=== PATIENT | male | born 1955 | race African-American/Black ===

== ENCOUNTER → 2019-01-23 15:03 | Outpatient (CLI) | payer OTHER, SELFPAY ==
[2019-01-23 15:19] LABS: Bacteria Urine None Seen; RBC Urine None Seen (0-5/HPF); WBC Urine None Seen (0-5/HPF)
[2019-01-23 15:57] LABS: Add Manual Diff / Slide Review NO; Basophils Absolute Auto 100 /uL (0-100); Basophils Percent Auto 1.2 % (0-2); Eosinophils Absolute Auto 300 /uL (0-450); Eosinophils Percent Auto 4.8 % (2-4); Hematocrit 38.2 % (41-53); Hemoglobin 12.3 g/dL (13.5-17.5); Lymphocytes Absolute Auto 1400 /uL (1100-4500); Lymphocytes Percent Auto 26.9 % (25-40); Mean Corpuscular HGB Conc 32.2 % (30-36); Mean Corpuscular Hemoglobin 29.6 PG (26-34); Mean Corpuscular Volume 91.8 fL (80-100); Monocytes Absolute Auto 400 /uL (0-900); Monocytes Percent Auto 6.9 % (3-14); Neutrophils Absolute Auto 3200 /uL (1500-7000); Neutrophils Percent Auto 60.2 % (50-75); Platelet Count 321 X10^3/uL (150-400); Red Blood Cell Count 4.17 X10^6/uL (4.5-5.9); Red Cell Distribution Width 12.8 % (11.6-14.8); White Blood Cell Count 5.3 X10^3/uL (4.5-11.0)
[2019-01-23 16:06] LABS: Appearance Urine UA CLEAR; Bilirubin Urine UA NEGATIVE (NEGATIVE); Color Urine UA YELLOW; Glucose Urine UA NEGATIVE (Negative); Ketones Urine UA NEGATIVE (NEGATIVE); Leukocyte Esterase Urine UA NEGATIVE (NEGATIVE); Nitrite Urine UA NEGATIVE (Negative); Occult Blood Urine UA NEGATIVE (Negative); Protein Urine UA TRACE (Negative); Specific Gravity Urine UA >=1.030 (1.000-1.035); Urobilinogen Urine UA 0.2 E.U./dL (0.2)
[2019-01-23 16:31] LABS: BUN Creatinine Ratio 15.6 (6-22); Blood Urea Nitrogen 14 mg/dL (9-20); Calcium 9.8 mg/dL (8.4-10.2); Carbon Dioxide 28 mmol/L (22-32); Chloride 103 mmol/L (98-107); Estimated Glomerular Filt Rate > 60.0 mL/min (>60); Glucose 80 mg/dL (80-110); HEMOLYSIS < 15 (0-50); Mucus Urine 2+ (Negative); Potassium 4.6 mmol/L (3.4-5.1); Sodium 139 mmol/L (137-145)
[2019-01-23 16:59] LABS: Culture Indicated Urine Cult Not Indicated
== END ==
PROVIDERS: Visit Provider Orthopaedic Surgery
DX: Z01.818 Encounter for other preprocedural examination (principal); Z01.812 Encounter for preprocedural laboratory examination; N39.9 Disorder of urinary system, unspecified; Z13.1 Encounter for screening for diabetes mellitus
CPT/HCPCS: 36415; 80048; 81001; 83036; 85025; 93005

== ENCOUNTER 2019-02-07 06:19 | Inpatient (IN) | payer OTHER, SELFPAY ==
[2019-01-24 07:22] VITALS: BMI 24.8
[2019-02-07] VITALS (15 sets, daily range): BP systolic 128–167; BP diastolic 63–99; PULSE 77–94; RESP 8–23; TEMP 36.3–37.4; O2SAT 96–99; BMI 23.5
--- NOTE | 2019-02-07 | DI.RAD.S_ITS ---
PROCEDURE: XR HIP W PEL IF DONE RT 2V INDICATIONS: RIGHT ANTERIOR HIP TECHNIQUE: 2 views of the hip were acquired. COMPARISON: None. FINDINGS: Bones: No fractures or dislocations after right total hip arthroplasty performed earlier today. Left severe hip joint osteoarthritis is noted, without acute trauma superimposed.. No suspicious bony lesions. The visualized pelvic ring appears intact. Soft tissues: No suspicious soft tissue calcifications or masses. IMPRESSION: Severe left hip joint osteoarthritis, right total hip arthroplasty performed earlier today with normal alignment established. Dictated by: Cristino Umanzor M.D. on 02/07/2019 at 14:09 Approved by: Cristino Umanzor M.D. on 02/07/2019 at 14:10
--- NOTE | 2019-02-07 | DI.RAD.S_ITS ---
PROCEDURE: XR PELVIS 1-2V INDICATIONS: RIGHT ANTERIOR HIP INNER OP PRACTICE TECHNIQUE: Intra-operative view of the pelvis and hip acquired. COMPARISON: None. FINDINGS: Bones: Intraoperative devices prior to placement of arthroplasty prostheses are in expected positions. No fractures or suspicious bony lesions. Soft tissues: Overlying surgical retractors are present, along with other intraoperative changes. IMPRESSION: Normal alignment in preparation for placement of final components of right total hip arthroplasty. Dictated by: Cristino Umanzor M.D. on 02/07/2019 at 15:23 Approved by: Cristino Umanzor M.D. on 02/07/2019 at 15:23
[2019-02-07] MEDS: LACTATED RINGERS 1,000 ML 42 ML IV ×2 (06:55→09:51)
[2019-02-07] MEDS: VANCOMYCIN 1,000 MG/200 ML FROZ.PIGGY 200 MG IV (07:00)
[2019-02-07] MEDS: ACETAMINOPHEN 325 MG TABLET 975 MG PO ×3 (07:15→21:50)
[2019-02-07] MEDS: PREGABALIN 75 MG CAPSULE PO (07:16)
[2019-02-07] MEDS: CELECOXIB 200 MG CAPSULE PO (07:16)
--- NOTE | 2019-02-07 07:36 | PM.PREOP ---
Pre-operative Note Interval Note History & Physical reviewed/Exam performed by Physician: Yes Changes to H&P: No
--- NOTE | 2019-02-07 07:36 | PM.OP.1 ---
Operative Date/Time/Diagnoses Date of procedure: 02/07/19 Time of procedure: 07:58 Pre-op diagnosis: right hip OA Post-op diagnosis: same Procedure & Clinicians Procedure: right total hip arthroplasty anterior Same procedure as scheduled: Yes Indications: The patient has had progressively worsening right hip pain with radiographic changes consistent with arthritis. Non-operative management has failed and the patient has requested total hip replacement. The risks, benefits and alternatives to surgery were discussed with the patient prior to proceeding. Risks discussed included, but were not limited to, failure to relieve pain, leg length discrepancy, dislocation, stiffness, infection, nerve damage, deep venous thrombosis, pulmonary embolism, stroke, coma, heart attack, permanent paralysis and , as well as the potential need for eventual revision of the prosthetic. Surgeon: Jerilyn Sanchez Rn Operating Room: [facility] Anesthesia Type: General and Spinal Operative Notes Findings: Severe right hip arthritis, good stability Closure Type: primary Specimen(s): none sent Prosthetic devices, grafts, tissues, transplants, or devices: sanchez and nephew R3 54, anthology 7 high offset, +0 by 36 Estimated Blood Loss (mL): 250 Blood products transfused: none Procedure in detail: The patient was brought to the operating room. Patient was carefully positioned in the supine position. Time-out was performed and antibiotics were given. Anesthesia was induced. He was positioned in the on the Dana table in order to allow hyperextension of the hip. The right lower extremities was prepped and draped in a standard sterile fashion. An anterior right hip incision was made 1 fingerbreadth lateral to the anterior superior iliac spine and extended distally towards the greater trochanter. Dissection was carried out through skin and subcutaneous tissues. The skin and subcutaneous tissues were carefully injected with Lidocaine with epi. Superficial hemostasis was achieved. The fascia over the tensor fascia sybil was defined and incised with a knife. Two Allis clamps were used to grasp the fascia. Tensor fascia sybil was retracted laterally. A gelpi retractor was placed. Dissection was carried out down along the neck. The circumflex vessels were carefully identified and cauterized with the Aqua Mantis. There was good visualization of the femoral neck. A Cobra was placed superior to the neck and the gluteus fibers were carefully stripped from that superior aspect of the capsule. A 2nd retractor was placed along the inferior aspect of the neck. The rectus insertion along the capsule was partially released. A 3rd retractor that was then gently placed over the rim of the acetabulum under the rectus. Capsule was carefully incised and released from the intertrochanteric line circumferentially superior to the mid sagittal line and inferiorly to the mid sagittal line until the lesser trochanter was palpable. A tag stitch was placed both in the superior and inferior limb of the capsular insertion. Along the acetabulum capsule was also released up to the mid sagittal 12:00 position. A portion of the labrum was resected. A saw was used to perform an osteotomy at the level of the intertrochanteric line and the junction of the superior femoral neck leaving approximately 1 finger breath of residual inferior neck above the lesser trochanter. A 2nd cut was made along the femoral neck at the base of the head and a napkin ring of neck was removed. Corkscrew was placed in the femoral head and the head was removed without difficulty. Retractors were then repositioned around the acetabulum. Residual labrum was resected and additional osteophytes were removed. A reamer that was 4 mm below the templated size was placed by hand in the acetabulum and it was reamed to centralize the acetabulum. It was then reamed up to 2 under the templated size and fluoroscopy was brought in to confirm the position of the reaming and depth of reaming. I reamed 1 under the anticipated size and touched the rim with line to line reaming. A trial cup was placed and noted that it was appropriately sized and fluoroscopy confirmed position and depth. The component was open and inserted without difficulty fluoroscopic imaging was used to confirm that the cup had been adequately seated and was well positioned. Neutral poly trial liner was placed. The cup was tested and noted to be stable. Attention was then directed to the femur. The femur was gently hyperextended additional capsular release was performed as needed in order to allow adequate visualization of the proximal femur with elevation of the femur. Patient was placed in a hyperextended slightly abducted position with maximum external rotation. Box osteotome was used to check for any residual neck as well as sclerotic bone along the trochanter. [place] pepper was placed in the femur. Additional broaching was performed. Canal finder was used to determine the alignment of the canal and position. Size 1 broach was placed. The canal was then appropriately broached up to the templated size as long as there was adequate stability of the broach and serial advancement of the broach without excessive impingement. Specific attention was directed at avoiding varus attempting to direct the distal aspect of the broach more anteriorly and avoiding excessive anteversion. Trial reduction showed acceptable range of motion, good stability, no posterior impingement, spiritism of leg length and appropriate lateral shuck. I also hyperflexed the hip and checked that there was no impingement anteriorly and there was good stability with flexion, abduction and internal rotation. Final neutral poly was placed without difficulty. Marcaine and Exparel were injected.. The stem was placed without difficulty. Repeat trial reduction and x-ray showed acceptable overall position, length, and no evidence of the femoral fracture. Final head was placed. Wound was meticulously irrigated with normal saline. The hip was reduced and additional Exparel and Marcaine were injected. The capsule was closed with interrupted nonabsorbable sutures. The fascia of the tensor was closed with interrupted and running Vicryl. No drain was placed. Any tensor fascia sybil muscle that appeared to be contused or injured which was a minimal amount was carefully resected. Capsule around the tensor was injected with Exparel and Marcaine. The skin was closed with barbed stitches for the subcutaneous tissue and skin. We also used surgical glue. The wound was dressed sterilely. Brief Betadine soak was also used and was meticulously irrigated with normal saline. Patient was transferred to recovery room in satisfactory condition. Complications: none Condition: stable Disposition: Acute Care Plan for aftercare: The patient will be maintained on a standard total hip replacement protocol with weight bearing as tolerated and anterior hip precautions. The patient will receive Aspirin and sequential compression devices for DVT prophylaxis. The patient will be discharged home when safe for the home environment.
[2019-02-07] MEDS: CEFAZOLIN 2 GM/100 ML FROZ.PIGGY IV ×2 (08:04→16:27)
[2019-02-07] MEDS: LIDOCAINE 1% W/EPI INJ 20 ML INJ (08:40)
[2019-02-07] MEDS: TRANEXAMIC ACID 1,000 MG VIAL 1000 MG INJ ×2 (09:07→11:04)
[2019-02-07] MEDS: BUPIVACAINE LIPOSOME 266 MG/20 ML VIAL INJ (09:07)
[2019-02-07] MEDS: BUPIVACAINE 0.25% W/ EPI (PF) 10 ML VIAL 60 ML INJ (09:08)
[2019-02-07] MEDS: POVIDONE-IODINE 15 ML, SODIUM CHLORIDE 0.9% 250 ML TOP (09:52)
--- NOTE | 2019-02-07 12:17 | SUR.PHASEI ---
REPORT CALLED TO [facility]NA ON ACUTE CARE FLOOR. PT IN STABLE CONDITION AND BEING TRANSPORTED TO ACUTE CARE FLOOR AT THIS TIME.
--- NOTE | 2019-02-07 12:26 | SUR.PHASEI ---
PT TRANSFERED TO ACUTE CARE FLOOR IN STABLE CONDITION. PT ALERT AND TALKING TO STAFF DURING TRANSPORT. PT IN ROOM UPON ARRIVAL. BEDSIDE REPORT GIVEN TO JEAN GILBERT UPON ARRIVAL. TRANSFERRED CARE OF PT TO [facility] PE[facility] AT THAT TIME.
[2019-02-07] MEDS: LACTATED RINGERS 1,000 ML 125 ML IV ×2 (13:00→21:48)
--- NOTE | 2019-02-07 13:49 | CM.DANOTE ---
DCP: Case received,EMR reviewed and met with patient. Introduced self and role. DCP template completed with information currently available. Patient is a 63 year old male who admitted early this morning to the care of the surgical team. PCP: Dr. Man at [facility]. Payer: confirmed: [employer]. Patient came to hospital for surgical procedure. Had Right total hip replacement. Patient has had history of bilateral hip pain. Met with patient today. , Jenni at bedside. Patient alert and oriented, pleasant and conversive. Lives in [place] with his spouse. He stated that prior to surgery, he has been independent, no cane or walker. He has also been driving. He stated that he plans to go home and go to outpatient physical therapy. P: DCP to follow closely. Had surgery this morning, and anticipate that he will be soon working with physical therapy. Will consult with the therapy team as well, for discharge planning. Mandy Benavides RN/[employer]
--- NOTE | 2019-02-07 14:13 | PC.NURSE ---
Received patient post op from PACU approx 1325, vss. Denies pain. Aquacel dressing in place, CDI, no signs of bleeding. Moving all extremities. Good pulses, neurovascular check wnl. Urinal placed within reach, call light within reach. Bed alarm on for safety.
[2019-02-07] MEDS: OXYCODONE IR 5 MG TABLET PO ×2 (15:02→21:49)
--- NOTE | 2019-02-07 15:30 | PT.IIE ---
Current Diagnoses Bilateral primary osteoarthritis of hip (02/07/19) Pain in right hip (02/07/19) Surgery Performed Operation Date: 02/07/19 07:45 Actual Procedures p Total Hip Arthroplasty/Anterior Approach(Right) - Jerilyn Delgadillo MD Surgical History (Last Updated 01/24/19 @ 08:19 by Liza Craft, RN) History of ankle surgery (Acute ~1981) History of colonoscopy (Acute) Medical History (Last Updated 01/24/19 @ 08:19 by Liza Craft RN) Anxiety and depression (Acute) Arthritis (Acute) Heartburn (Acute) Low back pain (Acute) Sciatica (Acute) Physical Therapy Inpatient Evaluation/Re-Eval M1 PT/OT-IP Prior Functional Status Start: 02/07/19 16:45 Freq: NEEDED Status: Active Protocol: Document 02/07/19 15:30 AB (Rec: 02/07/19 17:10 AB [id number]) Medical Review Prior Functional Status Medical History Reviewed Yes Communication able to make needs known Mobility and Gait pt stated that he is independent with all mobilities and ambulation without AD Social History Household Members spouse Living Arrangements House Number of Floors (Floors) One Floor Number of Stairs To Enter/Railing? 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 pt has a standard walker. M2 PT-IP Current Condition Start: 02/07/19 16:45 Freq: NEEDED Status: Active Protocol: Document 02/07/19 15:30 AB (Rec: 02/07/19 17:10 AB [id number]) Physical Therapy Current Condition Current Condition Evaluation Date 02/07/19 Treatment Diagnosis s/p R LESA anterior approach; difficulty in walking Onset Date 02/07/19 Precautions Anterior Hip Precautions No Hip Extension No Hip External Rotation Weight Bearing Status Weight Bearing Status Weight Bear as Tolerated M3 PT-IP Subjective Start: 02/07/19 16:45 Freq: NEEDED Status: Active Protocol: Document 02/07/19 15:30 AB (Rec: 02/07/19 17:10 AB [id number]) Subjective Physical Therapy Visit Type Type Initial Evaluation Visit Start Time 15:30 Visit Stop Time 16:20 Total Visit Minutes 50 Number of AEROBICS TEACHER Visits 0 Physical Therapy Visit Comments Patient Comments pt agreeable to do PT Therapy Pain Assessment Pain When Pain Assessed At Rest Pain Present Pain Present Pain Reported Location Right Groin Intensity 6 Scale Used Numeric (1 - 10) Pain Management Techniques Apply Cold Re-positioning Timing of Activity with Medications M4 PT-IP Mobility and Gait Start: 02/07/19 16:45 Freq: NEEDED Status: Active Protocol: Document 02/07/19 15:30 AB (Rec: 02/07/19 17:10 AB [id number]) PT-Bed Mobility Assessment Supine to Sit Supine to Sit Standby Assistance PT-Transfer Assessment Sit to and From Stand Sit to and from Stand Contact Guard Assistance Equipment Transfer Assistive Device Gait Belt Front Wheeled Walker Orthotic/Prosthetic Devices or Brace: No Transfers Transfer Destination Chair Transfer Technique Stand Step Pivot Transfer Ability Level of Assist Contact Guard Assistance 1 Person Assistance Use of Upper Extremities Comments Mobility Comments pt completed sit to stand from EOB CGA and was able to maintain standing using FWW for support. pt was able to maintain standing while using urinal. NAC present to assist with clean up and brief change. pt stated that he still cannot feel if he has to go or not. Pt completed sit <> stand x 3 reps and was able to maintain standing using FWW for support CGA while completed ADLs. Gait Assessment Gait Gait Assistance Required: Contact Guard Assist Distance (Feet) 30 Able to Maintain Weight Bearing Status Yes During Gait Assistive Devices Assistive Device Gait Belt Front Wheeled Walker Orthotic/Prosthetic Devices or Brace: No Factors Limiting Gait Function Factors Limiting Gait Function Decreased Activity Tolerance Decreased Strength Limited Range of Motion Pain Poor Balance Poor Safety Awareness Comments Gait Comments pt requires cues to maintain R hip anterior precautions PT-Balance Assessment Sitting Balance and Reactions Static Sitting Balance Ability Good Dynamic Sitting Balance Ability Good Standing Balance and Reactions Static Standing Balance Ability Fair Dynamic Standing Balance Ability Fair Device Used FWW M5 PT-IP Objective Assessments Start: 02/07/19 16:45 Freq: NEEDED Status: Active Protocol: Document 02/07/19 15:30 AB (Rec: 02/07/19 17:10 AB [id number]) Orientation Orientation/Cognition Level of Alertness Alert Orientation Name Age Place Situation Language Function Ability No Deficits Noted Safety Awareness Decreased Safety Awareness Memory Description Short Term Impaired Gross Range of Motion Lower Extremity ROM Assessment Within Functional Limits Strength Lower Extremity Strength Assessment Right Impaired Hip 3+/5 Knee 4-/5 Ankle 4+/5 Coordination Assessment Gross Coordination Gross Coordination WNL Sensation Assessment Sensation Gross Sensation Right LE Impaired Sensation Description Numbness Muscle Tone Muscle Tone WNL Yes M6 PT-IP Treatment Start: 02/07/19 16:45 Freq: NEEDED Status: Active Protocol: Document 02/07/19 15:30 AB (Rec: 02/07/19 17:10 AB [id number]) Physical Therapy Treatment Education Education Provided Precautions Weight Bearing Status Post-Op Packet Safety M7 PT-IP Assessment and Plan Start: 02/07/19 16:45 Freq: NEEDED Status: Active Protocol: Document 02/07/19 15:30 AB (Rec: 02/07/19 17:10 AB [id number]) PT Summary Assessment and Plan Potential Rehabilitation Potential Good Status of Condition at Evaluation Stable Summary Impairments Pain ROM Strength Balance Coordination Sensation Tone Cognition Bed Mobility Transfers Gait Activity Tolerance Assessment Summary pt requiring CGA with mobility and will likely improve during hospital stay. pt plans to go home with spouse to assist him Goals Bed Mobility Goal Independent Transfer Goal Independent Front Wheeled Walker Gait Goal Independent Front Wheel Walker Gait Distance 250 Other Goals ambulation using standard walker 300 ft mod I Days to Meet Goals 3 Frequency of Treatment Frequency Of Treatment Twice a Day Treatment Plan Physical Therapy Treatment Plan Bed Mobility Training Transfer Training Gait Training Therapeutic Exercise Balance Retraining Post Op Education Discharge Planning Hot or Cold Pack Neuromuscular Re-ed Coordination Retraining Manual Therapy Other Recommendations and Next Treatment ambulation using standard Focus walker Recommendations To Nursing Amount of Assist Needed 1 Person Assist Discharge Recommendations PT Discharge Recommendations Home with Assistance Outpatient PT Equipment Needed for Home Before FWW if not safe with standard Discharge walker
[2019-02-07] MEDS: NICOTINE 21 MG PATCH TOP (16:28)
[2019-02-07] MEDS: DOCUSATE 100 MG CAPSULE PO (21:51)
[2019-02-07] MEDS: ASPIRIN EC 81 MG TABLET PO (21:51)
[2019-02-07] MEDS: SERTRALINE 50 MG TABLET 100 MG PO (21:51)
[2019-02-08] MEDS: CEFAZOLIN 2 GM/100 ML FROZ.PIGGY IV (00:13)
[2019-02-08] MEDS: OXYCODONE IR 10 MG TABLET PO ×2 (04:13→09:05)
[2019-02-08] MEDS: LACTATED RINGERS 1,000 ML 125 ML IV (04:13)
[2019-02-08 04:23] VITALS: BP 160/76; PULSE 77; RESP 18; TEMP 37.4; O2SAT 98
[2019-02-08 06:07] LABS: Hematocrit 30.7 % (41-53); Hemoglobin 10.1 g/dL (13.5-17.5)
--- NOTE | 2019-02-08 07:18 | P.DS_ITS ---
History of Present Illness Date Patient Seen: 02/08/19 Chief complaint: [id number] Right Total Hip Arthroplasty Narrative: Patient is seen bedside status post right anterior total hip arthroplasty by Dr. Delgadillo on 02/07/2019. Patient is doing well, he has been up several times and is using his walker. He would like to go home today. Pain has been well controlled with 10 mg of oxycodone. He normally receives his op iate scripts from his pain management doctor whom he has a pain contract with, however, he has been cleared to get his initial postoperative scripts from us. Discharge Providers Date of admission: 02/07/19 06:19 Discharge Date: 02/08/19 Consults: 01/24/19 08:32 Consult to Pastoral Services Routine Comment: RT LESA 02/07/19 Consult to Respiratory Therapy Evaluate & Treat Comment: RT LESA 02/07/19. Pt would like a nicotine patch Physician Instructions: Evaluate and treat 02/07/19 06:00 Consult to Anesthesiology Routine Comment: Consulting Provider: Anesthesiologist Reason for consultation: Regional block for post operative pain control 02/07/19 12:31 Consult to Discharge Planning Routine Comment: Consult to Physical Therapy Evaluate & Treat Comment: oob today Physician Instructions: post op LESA protocol Consult to Respiratory Therapy Evaluate & Treat Comment: Physician Instructions: Evaluate and treat Discharge provider: Cayla Abdi PA-C Summary Discharge Diagnosis: Right hip osteoarthritis Hospital Course: Patient was admitted to the hospital s/p right anterior LESA POD #1. Patient tolerated the procedure well with no major complications. They were transferred to the acute care floor where they were placed on the standard joint replacement pathway and protocol. They were seen by physical therapy who recommended that they be discharged home. They were stable and ready for discharge on 02/08/2019. Status at Discharge Cognitive/behavioral status at discharge: oriented Functional status at discharge: uses cane/walker Overall status at discharge: patient is progressing back to baseline Time Spent with Patient Less than 30 minutes Exam Vital Signs (past 8 hours): - 02/07/19 23:45 02/08/19 04:23 Temperature 99.2 F 99.4 F Pulse Rate 81 77 Respiratory Rate 16 18 Blood Pressure 147/70 H 160/76 H Pulse Oximetry 99 98 Oxygen Delivery Method Room Air Oxygen Flow Rate 0 Narrative Exam Narrative: Well-developed, well-nourished, no acute distress. Alert and oriented to person, place, and time. Dressing on operative hip is clean, dry, and intact with no signs of drainage. Minimal erythema and generalized swelling around the surgical site. Neurovascularly intact in the operative extremity with a soft and compressible calf. Range of motion of the operative ankle intact. Objective Labs Result Diagrams: 02/08/19 05:50 Labs: Laboratory Results - last 24 hr 02/08/19 05:50 Hgb 10.1 L Hct 30.7 L Discharge Plan Discharge Plan Patient Disposition: Home Discharge Med Rec/Prescriptions Prescriptions: New aspirin 81 mg Tablet,Delayed Release (Dr/Ec) 81 mg PO BID Qty: 0 RF: 0 docusate sodium 100 mg Capsule 100 mg PO BID Qty: 0 RF: 0 oxycodone 10 mg tablet 10 mg PO Q4-6H PRN (Reason: pain) Qty: 40 RF: 0 Continued meloxicam 15 mg Tablet 15 mg PO DAILY RF: 0 sertraline 100 mg Tablet 200 mg PO BID RF: 0 ranitidine HCl 75 mg Tablet 75 mg PO DAILY PRN (Reason: GI upset) RF: 0 Discontinued oxycodone-acetaminophen [Percocet] 5-325 mg Tablet 1 tab PO BID RF: 0 ibuprofen 400 mg Tablet 400 mg PO QAM RF: 0 Follow up/Referrals: Jerilyn Delgadillo MD [Physician] - (Follow up in the office in 5-7 days as previously scheduled. Please check [facility] book for appointment information.) Provider Discharge Instructions Diet: Diet as Tolerated Activity: Weightbearing as tolerated, follow anterior hip precuations Cold/Heat Therapy: Apply ice 20 minutes at a time to surgical site at least hourly while awake. Other treatments: Please refer to [facility] book for other post-operative instructions and answers to questions/concerns. Do not take ibuprofen and meloxicam at the same time. Skin/Wound/Dressing Care Report to your healthcare provider any signs of infection, such as:: chills, fever, night sweats, increased pain, unusual drainage and unusual redness Dressing: Keep dressing clean, dry, and intact. May shower with it in place but no soaking. Visit Report/Discharge Packet Instructions: DI for Hip Replacement Stand Alone Forms: Surgery Discharge Discharge Data Attending Provider: Jerilyn Delgadillo Admit Date/Time: 02/07/19 06:19 Quality VTE Deep Vein Thrombosis/Pulmonary Embolism Present on Admission: No
[2019-02-08 08:00] VITALS: BP 142/71; PULSE 78; RESP 16; O2SAT 97
[2019-02-08] MEDS: DOCUSATE 100 MG CAPSULE PO (09:06)
[2019-02-08] MEDS: MELOXICAM 7.5 MG TABLET 15 MG PO (09:06)
[2019-02-08] MEDS: ASPIRIN EC 81 MG TABLET PO (09:06)
[2019-02-08] MEDS: ACETAMINOPHEN 325 MG TABLET 975 MG PO (09:06)
[2019-02-08] MEDS: SERTRALINE 50 MG TABLET 100 MG PO (09:07)
--- NOTE | 2019-02-08 09:57 | PT.IPTN ---
Current Diagnoses Bilateral primary osteoarthritis of hip (02/07/19) Pain in right hip (02/07/19) Surgery Performed Operation Date: 02/07/19 07:45 Actual Procedures p Total Hip Arthroplasty/Anterior Approach(Right) - Jerilyn Delgadillo MD Physical Therapy Treatment Note M2 PT-IP Current Condition Start: 02/07/19 16:45 Freq: NEEDED Status: Active Protocol: Document 02/07/19 15:30 AB (Rec: 02/07/19 17:10 AB [id number]) Physical Therapy Current Condition Current Condition Evaluation Date 02/07/19 Treatment Diagnosis s/p R LESA anterior approach; difficulty in walking Onset Date 02/07/19 Precautions Anterior Hip Precautions No Hip Extension No Hip External Rotation Weight Bearing Status Weight Bearing Status Weight Bear as Tolerated M3 PT-IP Subjective Start: 02/07/19 16:45 Freq: NEEDED Status: Active Protocol: Document 02/08/19 09:57 AB (Rec: 02/08/19 11:16 AB [id number]) Subjective Physical Therapy Visit Type Type Treatment Note Visit Start Time 09:57 Visit Stop Time 10:13 Total Visit Minutes 16 Number of [employer] ANALYST Visits 0 Physical Therapy Visit Comments Patient Comments pt agreeable to do PT Therapy Pain Assessment Pain When Pain Assessed At Rest Pain Present Pain Present Pain Reported Location Right Groin Intensity 5 Scale Used Numeric (1 - 10) Pain Management Techniques Apply Cold Re-positioning Timing of Activity with Medications M4 PT-IP Mobility and Gait Start: 02/07/19 16:45 Freq: NEEDED Status: Active Protocol: Document 02/08/19 09:57 AB (Rec: 02/08/19 11:16 AB [id number]) PT-Bed Mobility Assessment Supine to Sit Supine to Sit Standby Assistance Scooting Scooting to Edge of Bed Standby Assistance PT-Transfer Assessment Sit to and From Stand Sit to and from Stand Standby Assistance Equipment Transfer Assistive Device Gait Belt Front Wheeled Walker Orthotic/Prosthetic Devices or Brace: No Comments Mobility Comments pt requested to use the toilet and ambulated using std walker SBA. completed toileting without assist and was able to maintain standing balance SBA by the sink to complete handwashing Gait Assessment Gait Gait Assistance Required: Standby Assistance Distance (Feet) 150 Able to Maintain Weight Bearing Status Yes During Gait Assistive Devices Assistive Device Gait Belt Standard Walker Orthotic/Prosthetic Devices or Brace: No Factors Limiting Gait Function Factors Limiting Gait Function Decreased Activity Tolerance Decreased Strength Limited Range of Motion Pain Poor Balance M5 PT-IP Objective Assessments Start: 02/07/19 16:45 Freq: NEEDED Status: Active Protocol: Document 02/07/19 15:30 AB (Rec: 02/07/19 17:10 AB [id number]) Orientation Orientation/Cognition Level of Alertness Alert Orientation Name Age Place Situation Language Function Ability No Deficits Noted Safety Awareness Decreased Safety Awareness Memory Description Short Term Impaired Gross Range of Motion Lower Extremity ROM Assessment Within Functional Limits Strength Lower Extremity Strength Assessment Right Impaired Hip 3+/5 Knee 4-/5 Ankle 4+/5 Coordination Assessment Gross Coordination Gross Coordination WNL Sensation Assessment Sensation Gross Sensation Right LE Impaired Sensation Description Numbness Muscle Tone Muscle Tone WNL Yes M6 PT-IP Treatment Start: 02/07/19 16:45 Freq: NEEDED Status: Active Protocol: Document 02/08/19 09:57 AB (Rec: 02/08/19 11:16 AB [id number]) Physical Therapy Treatment Education Education Provided Precautions Safety M7 PT-IP Assessment and Plan Start: 02/07/19 16:45 Freq: NEEDED Status: Active Protocol: Document 02/08/19 09:57 AB (Rec: 02/08/19 11:16 AB [id number]) PT Summary Assessment and Plan Potential Rehabilitation Potential Good Summary Impairments Pain ROM Strength Balance Coordination Sensation Bed Mobility Transfers Gait Activity Tolerance Progress Towards Goals Progressing Toward Goals Assessment Summary pt doing well with mobility and plans to go home with spouse to assist. pt may go home when medically stable. Goals Bed Mobility Goal Independent Transfer Goal Independent Front Wheeled Walker Gait Goal Independent Front Wheel Walker Gait Distance 250 Other Goals ambulation using standard walker 300 ft mod I Days to Meet Goals 3 Frequency of Treatment Frequency Of Treatment Twice a Day Treatment Plan Physical Therapy Treatment Plan Bed Mobility Training Transfer Training Gait Training Therapeutic Exercise Balance Retraining Post Op Education Discharge Planning Hot or Cold Pack Neuromuscular Re-ed Coordination Retraining Manual Therapy Recommendations To Nursing Amount of Assist Needed 1 Person Assist Discharge Recommendations PT Discharge Recommendations Home with Assistance Outpatient PT
== END 2019-02-08 13:15 | disposition home or self-care (01) | DRG 470 ==
PROVIDERS: Admitting Provider Orthopaedic Surgery; Visit Provider Orthopaedic Surgery
PROC: 0SR902Z Replacement of Right Hip Joint with Metal on Polyethylene Synthetic Substitute, Open Approach (ICD-10-PCS; CPT 27130; principal; 2019-02-07 07:45)
DX: M16.11 Unilateral primary osteoarthritis, right hip (principal); F17.210 Nicotine dependence, cigarettes, uncomplicated
CPT/HCPCS: 72170; 73502; 76000; 85014; 85018; 97116; 97161; 97530; C1776; C9290; J0690; J1170; J2250; J2274; J2405; J2704; J3010; J3370

== ENCOUNTER → 2019-03-26 20:10 | Outpatient (ROUT) | payer OTHER, SELFPAY ==
[2019-02-07 12:36] VITALS: BMI 23.5
[2019-03-26 20:33] LABS: Add Manual Diff / Slide Review NO; Alanine Aminotransferase 16 IU/L (21-72); Albumin 4.5 g/dL (3.5-5.0); Albumin Globulin Ratio 1.7 (1.0-2.8); Alkaline Phosphatase 84 U/L (38-126); Aspartate Aminotransferase 48 IU/L (17-59); Basophils Absolute Auto 100 /uL (0-100); Basophils Percent Auto 1.2 % (0-2); Bilirubin Total 0.5 mg/dL (0.2-1.3); Blood Urea Nitrogen 10 mg/dL (9-20); Calcium 9.9 mg/dL (8.4-10.2); Carbon Dioxide 27 mmol/L (22-32); Chloride 103 mmol/L (98-107); Cholesterol 193 mg/dL (140-199); Eosinophils Absolute Auto 400 /uL (0-450); Eosinophils Percent Auto 6.6 % (2-4); Estimated Glomerular Filt Rate > 60.0 mL/min (>60); Globulin 2.6 g/dL (1.7-4.1); Glucose 119 mg/dL (80-110); HDL Cholesterol 58 mg/dL (40-60); HEMOLYSIS 23 (0-50); Hematocrit 35.2 % (41-53); Hemoglobin 11.6 g/dL (13.5-17.5); LDL Cholesterol Calculated 112 mg/dL (<100); Lymphocytes Absolute Auto 1500 /uL (1100-4500); Lymphocytes Percent Auto 24.3 % (25-40); Mean Corpuscular HGB Conc 32.8 % (30-36); Mean Corpuscular Hemoglobin 29.5 PG (26-34); Mean Corpuscular Volume 89.7 fL (80-100); Monocytes Absolute Auto 300 /uL (0-900); Monocytes Percent Auto 5.2 % (3-14); Neutrophils Absolute Auto 3800 /uL (1500-7000); Neutrophils Percent Auto 62.7 % (50-75); Platelet Count 349 X10^3/uL (150-400); Potassium 4.1 mmol/L (3.4-5.1); Red Blood Cell Count 3.93 X10^6/uL (4.5-5.9); Red Cell Distribution Width 13.4 % (11.6-14.8); Sodium 140 mmol/L (137-145); Total Protein 7.1 g/dL (6.3-8.2); Triglycerides 114 mg/dL (35-150); White Blood Cell Count 6.1 X10^3/uL (4.5-11.0)
== END ==
PROVIDERS: Visit Provider Nurse Practitioner Acute Care
DX: R73.01 Impaired fasting glucose (principal); I10 Essential (primary) hypertension
CPT/HCPCS: 80053; 80061; 85025

== ENCOUNTER 2019-05-26 19:00 | Emergency (ER) | payer OTHER, SELFPAY ==
[2019-02-07 12:36] VITALS: BMI 23.5
[2019-05-26 19:00] VITALS: BP 163/87; PULSE 81; RESP 18; TEMP 37; O2SAT 94; BMI 25.7
--- NOTE | 2019-05-26 19:24 | DI.RAD.S_ITS ---
PROCEDURE: XR FINGER RT MIN 2V INDICATIONS: R distal phalax nodule for 6 month TECHNIQUE: AP hand, 2 views of the thumb finger(s) acquired. COMPARISON: None. FINDINGS: Bones: No acute fractures or dislocations. Degenerative changes throughout the right hand with degenerative subchondral cystic change at the head of the third finger middle phalanx. Marginal osteophyte formation of the metacarpophalangeal joints of the second through fifth fingers. Moderate degenerative changes of the right thumb involving the interphalangeal joint. There is a superficial soft tissue nodule measuring approximately 1.8 cm in longitudinal dimension overlying the dorsal surface of the distal phalanx without underlying osseous erosions, periosteal reaction, or suspicious calcifications. Soft tissues: No suspicious soft tissue calcifications. IMPRESSION: 1.8 cm soft tissue nodule overlying the dorsal aspect of the right thumb at the level of the distal phalanx without underlying osseous erosions, periosteal reaction, or suspicious calcifications. Osteoarthrosis of the right hand as described above. No acute osseous abnormalities. Dictated by: Te De La Rosa M.D. on 05/26/2019 at 19:49 Approved by: Te De La Rosa M.D. on 05/26/2019 at 19:55
--- NOTE | 2019-05-26 20:11 | ED.SKABFB ---
HPI - Skin/Abscess/Foreign Bdy <SUSAN Ramos - Last Filed: 05/26/19 22:50> General Chief complaint: Skin/Abscess/Foreign Body Stated complaint: Growth on rt thumb Time Seen by Provider: 05/26/19 19:07 Source: patient and family Mode of arrival: ambulatory Limitations: no limitations History of Present Illness HPI narrative: This is a 63 year old, smoker, gentleman presents with his spouse left thumb nodule in IP joint for last 5-6 months with deformed thumbnail has known spoon appearance. He and his spouse reports the nodule occurred suddenly one day. He denies increasing in size, pain, redness, warmth, fever/shows, open skin. When he initially noticed a nodule, his dog had leaked on the site. He also reports pruritus, erythematous rash on his right side to right abdomen area, groin area, posterior neck for last several days. He reports the itching gets worse when he he sweats. He thought he was having on allergy reaction since he has environmental allergies to grass and the rash occurred after he mowed the lawn. He denies dyspnea, oropharyngeal swelling, chest pain, wheezing, shortness of breath. The patient reports has been using triple antibiotic ointment, OTC hydrocortisone cream on affected site and noticed the rash has been increasing in size. The patient and spouse are concerned if the finger nodule has an infection and the rash on his body are related and whether he has infection spread to his blood stream. He has a history of a hip replacement several months ago. Related Data Home Medications Medication Instructions Recorded Confirmed meloxicam 15 mg PO DAILY 01/24/19 02/07/19 ranitidine HCl 75 mg PO DAILY PRN 01/24/19 02/07/19 sertraline 200 mg PO BID 01/24/19 02/07/19 Previous Rx's Medication Instructions Recorded aspirin 81 mg PO BID #0 tab 02/08/19 docusate sodium 100 mg PO BID #0 cap 02/08/19 oxycodone 10 mg PO Q4-6H PRN #40 tab 02/08/19 Allergies Allergy/AdvReac Type Severity Reaction Status Date / Time No Known Drug Allergies Allergy Verified 01/24/19 08:02 Review of Systems <SUSAN Ramos - Last Filed: 05/26/19 22:50> Review of Systems General: See HPI HEENT: Denies sinus pain, ear pain, sore throat, difficulty swallowing, dizziness. Respiratory: See HPI Cardiovascular: Denies chest pain, palpitations, orthopnea, edema. Gastrointestinal: Denies nausea, vomiting, abdominal pain, diarrhea, constipation, melena. : Denies dysuria, frequency, incontinence, hematuria, urinary retention. Musculoskeletal: See HPI Skin: See HPI Neurologic: Denies weakness, headache, numbness, change in speech, confusion, seizures, incoordination. Psychiatric: No concerning psychosocial issues. 12-point review of systems is negative except for those stated above. PFSH <SUSAN Ramos - Last Filed: 05/26/19 22:50> Medical History Anxiety and depression (Acute) Arthritis (Acute) Heartburn (Acute) Low back pain (Acute) Sciatica (Acute) Surgical History (Updated 05/26/19 @ 22:36 by SUSAN Ramos) History of ankle surgery (Acute ~1981) History of colonoscopy (Acute) History of hip replacement (Chronic) Social History Smoking Status: Current every day smoker Social History Smoking Status: Current every day smoker Exam <SUSAN Ramos - Last Filed: 05/26/19 22:50> Narrative Exam Narrative: GEN: Alert, oriented x 3, well appearing and nourished, and in no acute distress. Head: Normal cephalic, atraumatic. No scalp or temporal tenderness, palpable mass or rash. EYES: Pupils are equal, round, and reactive to light and accommodation. Extraocular muscles are intact bilaterally. There is no subconjunctival hemorrhage, exudate and sclera non-icteric. ENT: Nose without bleeding, purulent discharge. Mucous membrane moist, no mucosal lesion. Throat without erythema, tonsillar hypertrophy or exudate. Uvula in midline, airway patent. Neck: Trachea in midline. No JVD, non-tender without lymphadenopathy. No masses or thyroid megaly. Supple, non-tender and meningeal signs. CARDIAC: Normal regular rate and rhythm without murmurs, gallops, or rubs. No chest wall tenderness. No peripheral edema, cyanosis or pallor. Capillary refill is less than 2 seconds. No carotid bruits. RESPIRATORY: Lungs are cleat to auscultate bilaterally. No cough, wheezes, rales, or rhonchi. No stridor, respiratory distress, increase work of breathing, or accessary muscle used. ABD: Abdomen soft, nontender and non-distended. No guarding or rebound tenderness to palpate. Bowel sounds are normal in all 4 quadrants. There is no palpable masses or organomegaly. EXT: Approx. 2x 2.5 cm elevated firm nodule without induration on on the base of left thumb nail, in IP joint. Not tender to palpate. Full painless ROM of all extremities including L thumb with no loss of sensation, strength, effusion. SKIN: Erythematous large patch on R side of upper body and abdomen. A small patch on posterior neck. Warm, dry. BACK: Nontender without deformity or crepitance. No flank tenderness. NEUROLOGICAL: Alert and oriented to place, time and person. Sensation and motor function intact bilaterally. No facial droops, dysphasia. PSYCHIATRIC: Good judgement and reason, without hallucinations, abnormal affect or abnormal behaviors during the examination. Patient is not suicidal. Initial Vital Signs Initial Vital Signs: Vital Signs Temperature 98.6 F 05/26/19 19:00 Pulse Rate 81 05/26/19 19:00 Respiratory Rate 18 05/26/19 19:00 Blood Pressure 163/87 H 05/26/19 19:00 Pulse Oximetry 94 05/26/19 19:00 <Albert Cramer DO - Last Filed: 05/27/19 03:50> Initial Vital Signs Initial Vital Signs: Vital Signs Temperature 98.6 F 05/26/19 19:00 Pulse Rate 81 05/26/19 19:00 Respiratory Rate 18 05/26/19 19:00 Blood Pressure 163/87 H 05/26/19 19:00 Pulse Oximetry 94 05/26/19 19:00 Course <SUSAN Ramos - Last Filed: 05/26/19 22:50> Orders Ordered: ED Orders 05/26/19 19:24 XR finger RT min 2V Stat Vital Signs - 8 hr 05/26/19 19:00 Temperature 98.6 F Pulse Rate 81 Respiratory Rate 18 Blood Pressure 163/87 H Pulse Oximetry 94 <Albert Cramer DO - Last Filed: 05/27/19 03:50> Orders Ordered: ED Orders 05/26/19 19:24 XR finger RT min 2V Stat Vital Signs - 8 hr 05/26/19 19:00 Temperature 98.6 F Pulse Rate 81 Respiratory Rate 18 Blood Pressure 163/87 H Pulse Oximetry 94 MDM - Skin/Abscess/Foreign Bdy <SUSAN Ramos - Last Filed: 05/26/19 22:50> Differential Diagnosis Likely abscess of skin or subcutaneous tissue, cellulitis and other (Lipoma) Medical Records Attestation: I reviewed the patient's medical records. Imaging Data XR-finger: Radiologist's impression: [address] [address] XRay Report Signed Patient: Tyler HermosilloMR#: [id number] : 6Acct:[id number] Age/Sex: 63 / MDate of Service: 05/26/19 Loc: ED Accession Number: [id number] Procedure: XR finger RT min 2V Ordering Provider: Son Braden PROCEDURE: XR FINGER RT MIN 2V INDICATIONS: R distal phalax nodule for 6 month TECHNIQUE: AP hand, 2 views of the thumb finger(s) acquired. COMPARISON: None. FINDINGS: Bones: No acute fractures or dislocations. Degenerative changes throughout the right hand with degenerative subchondral cystic change at the head of the third finger middle phalanx. Marginal osteophyte formation of the metacarpophalangeal joints of the second through fifth fingers. Moderate degenerative changes of the right thumb involving the interphalangeal joint. There is a superficial soft tissue nodule measuring approximately 1.8 cm in longitudinal dimension overlying the dorsal surface of the distal phalanx without underlying osseous erosions, periosteal reaction, or suspicious calcifications. Soft tissues: No suspicious soft tissue calcifications. IMPRESSION: 1.8 cm soft tissue nodule overlying the dorsal aspect of the right thumb at the level of the distal phalanx without underlying osseous erosions, periosteal reaction, or suspicious calcifications. Osteoarthrosis of the right hand as described above. No acute osseous abnormalities. Dictated by: Te De La Rosa M.D. on 05/26/2019 at 19:49 Approved by: Te De La Rosa M.D. on 05/26/2019 at 19:55 [facility] Narrative Medical decision making narrative: Two days x-ray on left thumb finger indicates no acute fractures or dislocations, however it shows a superficial soft tissue nodule measuring approximately 1.8 cm in longitudinal dimension overlying the dorsal surface of the distal phalanx without osseous erosions, periosteal reactions, suspicious calcifications. Also it showed osteoarthrosis of the right hand. I discussed with patient deferring the aspiration, or I& at this time since it does not appears to be the nodule will be drained. Also the nodule size does not appears to be infected at this time. He has full function of right thumb range of motion is without any pain. The patient and his spouse were assured that he does not have constitutional symptoms with the findings today and it is highly unlikely that he has sepsis. The rash on his body appears to be due to fungal in origin. I spoke with the patient and spouse that he will be treated with Diflucan oral tabs and advised to use clotrimazole 1% [id number] ointment or cream. Patient was advised to follow up with his primary physician for re-evaluation and possible referral to director audience marketing or orthopedist for the finger nodule. All questions that was expressed by patient and the spouse were answered and they both agree with the plan of treatment. Discharge Plan Departure Patient Disposition: Home Clinical Impression: Fungal infection of skin Nodule of finger Qualifiers: Laterality: right Qualified Code(s): R22.31 - Localized swelling, mass and lump, right upper limb Discharge Date/Time: 05/26/19 21:20 Interventions: ED Discharge Assessment Last Done: 05/26/19 21:20 Instructions: DI for Epidermal Cyst, DI for Tinea Corporis Activity Restrictions/Additional Instructions: You have been diagnosed with [ fungal infection on your body/groin and today's xray test on L thumb shows soft tissue nodule. It is good that you do not have any pain, redness, decreased sensation on you're thumb.]. What to do: *Take your medications as directed. Hand written prescription for Diflucan 2 tablets were provided today. He can take a tab tomorrow and repeat another dose in 3 days if the rash does not get better. You could by [id number] Clotromazole 1% ointment/cream and use it on the rash on your right side/abdomen/groin area as well. Please continue take you're allergy pill if continues to be itching. *Follow up with your primary care provider in 2-3 days, call for an appointment. Let them know you were seen in the ED and that we asked you to be seen in follow up. *Return to ED if you have any new, worsening, or concerning symptoms, such as [worsening itching, spreading redness, discharge, swelling from you're rash or if you experience difficulty breathing, swelling to her throat or lips, chest pain, fever/chills, nausea/vomiting or any acute concerns]. Prescriptions: No Action meloxicam 15 mg Tablet 15 mg PO DAILY RF: 0 sertraline 100 mg Tablet 200 mg PO BID RF: 0 ranitidine HCl 75 mg Tablet 75 mg PO DAILY PRN (Reason: GI upset) RF: 0 aspirin 81 mg Tablet,Delayed Release (Dr/Ec) 81 mg PO BID Qty: 0 RF: 0 docusate sodium 100 mg Capsule 100 mg PO BID Qty: 0 RF: 0 oxycodone 10 mg tablet 10 mg PO Q4-6H PRN (Reason: pain) Qty: 40 RF: 0 Referrals: Will Man MD [Primary Care Provider] - <Albert Cramer DO - Last Filed: 05/27/19 03:50> Cosign ED Attending Satinder Attestation: I was immediately available in the department for consultation. Documentation has been reviewed. I agree with assessment and plan.
--- NOTE | 2019-05-26 21:25 | PC.NURSE ---
Pt states left thumb has growth that has been there for 5-6 months, denies pain but is concerned if it is infected. Pt has firm nodule in IP joint on left first digit that is not painful upon palpitation. PT has CMS intact and full us of digit intact.
== END 2019-05-26 21:20 | disposition home or self-care (01) ==
PROVIDERS: Emergency Provider Nurse Practitioner Family; PCP Internal Medicine
DX: R22.31 Localized swelling, mass and lump, right upper limb (principal); B36.9 Superficial mycosis, unspecified
CPT/HCPCS: 73140; 99282; 99283